=== PATIENT | female | born 1985 | race Caucasian/White ===

== ENCOUNTER → 2024-05-05 14:19 | Outpatient (REF) | payer OTHER, SELFPAY ==
[2024-05-05 15:01] LABS: Urine Albumin Trace (Neg - Trace); Urine Bilirubin Negative (Negative); Urine Character Clear (Clear); Urine Color Yellow; Urine Glucose Negative (Negative); Urine Ketone Trace (Negative); Urine Leukocyte Trace (Negative); Urine Nitrite Negative (Negative); Urine Occult Blood Negative (Negative); Urine Specific Gravity 1.025 (<1.030); Urine Urobilinogen Negative (Neg - 1+)
[2024-05-05 15:08] LABS: % Basophils 0.5 % (0-2); % Eosinophils 0.5 % (0-6); % Immature Granulocytes 0.2 % (0-0.5); % Lymphocytes 47.1 % (20.5-51.1); % Monocytes 8.8 % (1.7-9.3); % Neutrophils 42.9 % (42.2-75.2); Absolute Monocytes 0.6 10^3/uL (0.1-0.6); Absolute Neutrophils 2.7 10^3/uL (1.4-6.5); Hematocrit 40.4 % (37.0-47.0); Hemoglobin 13.9 g/dL (12.0-16.0); Mean Corp Hgb Conc. 34.4 g/dL (33.0-37.0); Mean Corpuscular Volume 87.3 fL (81.0-99.0); Mean Platelet Volume 10.2 fL (7.4-10.4); Nucleated Red Blood Cells % 0 %; Platelet Count 189 10^3/uL (130-400); Red Blood Cell Count 4.63 10^6/uL (4.20-5.40); Red Cell Dist. Width 11.9 % (11.5-14.5); White Blood Cell Count 6.4 10^3/uL (4.8-10.8)
[2024-05-05 15:22] LABS: ALT (SGPT) 16 U/L (0-35); AST (SGOT) 21 U/L (14-36); Albumin 4.9 g/dl (3.5-5.0); Alkaline Phosphatase 49 U/L (38-126); Blood Urea Nitrogen 9 mg/dl (7-17); Calcium 9.7 mg/dl (8.4-10.2); Carbon Dioxide 25 mmol/L (22-30); Chloride 102 mmol/L (98-107); Glucose 88 mg/dl (70-99); Lipase 58 U/L (23-300); Sodium 140 mmol/L (135-145); Total Bilirubin 0.5 mg/dl (0.2-1.3); Total Protein 7.5 g/dl (6.3-8.2); eGFR > 60.00
[2024-05-05 15:38] LABS: Free T4 1.44 ng/dl (0.78-2.19)
[2024-05-05 15:43] LABS: Urine Bacteria Moderate (Negative); Urine Mucus Moderate; Urine Red Blood Cell 0-2 /HPF (0-2); Urine White Cell 0-2 /HPF (0-5)
[2024-05-05 15:52] LABS: TSH 2.48 uIU/ml (0.47-4.68)
== END ==
LOC: REG 14:19
PROVIDERS: ATTENDING PHYSICIAN Nurse Practitioner Family
DX: R00.2 Palpitations (principal); R19.5 Other fecal abnormalities; R10.9 Unspecified abdominal pain; R10.12 Left upper quadrant pain
CPT/HCPCS: 36415; 80053; 81003; 81015; 83690; 84439; 84443; 85025; 87086

== ENCOUNTER → 2024-08-04 12:47 | Outpatient (REF) | payer OTHER, SELFPAY | LOC: WDC 12:47 | PROVIDERS: ATTENDING PHYSICIAN Internal Medicine | DX: N64.4 Mastodynia (principal) | CPT/HCPCS: 77062; 77066 ==

== ENCOUNTER → 2024-08-16 13:06 | Outpatient (REF) | payer OTHER, SELFPAY | LOC: RAD 13:06 | PROVIDERS: ATTENDING PHYSICIAN Internal Medicine | DX: R10.12 Left upper quadrant pain (principal) | CPT/HCPCS: 74177; Q9967 ==

== ENCOUNTER 2024-12-06 08:22 | Emergency (ER) | payer OTHER, SELFPAY ==
[2024-12-06 08:24] VITALS: BP 142/97
[2024-12-06 09:24] VITALS: BMI 22.5
--- NOTE | 2024-12-06 09:38 | ED.GENMED ---
History of Present Illness
General
Chief Complaint: Musculo-Skeletal Complaint
Time Seen by Provider: 12/06/24 09:30
History of Present Illness
History of Present Illness:
39-year-old female presents to the emergency department for evaluation of discomfort and redness to the right hand overlying the fourth MCP joint. She notes she was gardening yesterday but denies any acute injury. Awoke with symptoms today. Worse
with movement. No fevers or chills.
Past History
Past History
ED Past Medical History: None
ED Past Surgical History: Tonsilectomy
Social History
Tobacco: Non-smoker
Personal: Single
Living: with family
Employment: Employed (director of resource development)
Review of Systems
Review of Systems
Allergies reviewed?: Yes
All Other Systems: ROS reviewed and negative except as documented in HPI and ROS
Phy Exam
Physical Exam
Physical Exam:
GEN: Well appearing, NAD, WDWN
HEENT: Oral mucosa moist, no scleral icterus
Cardiac: Regular rate
Lung: No respiratory distress, no tachypnea
MSK: No gross deformity or injuries
Skin: Good color, no pallor or jaundice, mild erythema and swelling of the right fourth MCP joint, no significant pain with passive range of motion, no lymphangitis
Neuro: AO x3, moves all extremities freely
Psych: Calm, cooperative
Course
Orders/Labs/Results
Orders:
Orders
12/06/24 08:27
Hand, Right 3 View [CR Hand - Right Min 3 Views] Urgent
Comment:
Reason For Exam: right hand pain and tenderness
Vital Signs
Initial and Last Documented VS:
Initial Vital Signs
Temp Pulse Resp BP Pulse Ox
98.8 F 103 16 142/97 98
12/06/24 08:24 12/06/24 08:24 12/06/24 08:24 12/06/24 08:24 12/06/24 08:24
Last Documented Vital Signs
Temp Pulse Resp BP Pulse Ox
98.8 F 103 16 142/97 98
12/06/24 08:24 12/06/24 08:24 12/06/24 08:24 12/06/24 08:24 12/06/24 08:24
MDM/Problems Addressed
MDM/Problems Addressed:
Likely a mild developing cellulitis on the basis of recent gardening, likely a small puncture wound that was not appreciated at the time of injury. Will cover with Keflex
*Critical Care Note
Total Time (30-74mins, 75-104mins- exclusive of procedures): Not Applicable
ED Attending Note
-
Portions of this chart may have been created with voice recognition software.� Occasional wrong word or��sound alike� substitutions may have occurred due to the inherent limitations of voice recognition software.
Discharge Plan
Departure
Patient Disposition: Home (Routine Discharge)
Date of Disposition: 12/06/24
Time of Disposition: 09:39
Patient with high blood pressure during this ER visit?: No
Discharge Problem:
Cellulitis of hand, right
Instructions: Cellulitis (skin infection) in adults - ED discharge instructions
Prescriptions:
New
cephalexin 500 mg capsule
500 mg PO Q8H 5 Days Qty: 15 0RF
No Action
ibuprofen [Advil] 200 MG tablet
400 mg PO PRN PRN (Reason: pain)
Referrals:
Michel Hayward DO [Family Provider] -
Interventions
Interventions:
*Risk Screen - Suicide Last Done: 12/06/24 08:24
*General Assessment Last Done: 12/06/24 09:24
*Neglect/Abuse Screening Last Done: 12/06/24 08:24
*ED- Fall Risk Assessment Last Done: 12/06/24 09:24
*ED COVID-19 Vaccine History Last Done: 12/06/24 09:24
*Nursing Disposition Last Done: 12/06/24 09:47
ED-Musculoskeletal Assessment Last Done: 12/06/24 09:24
Discharge Date and Time
Discharge Date/Time: 12/06/24 09:48
Print Language: SYRIAN
== END 2024-12-06 09:48 | disposition home or self-care (01) ==
LOC: EMR 08:22
PROVIDERS: EMERGENCY PHYSICIAN Emergency Medicine; FAMILY PHYSICIAN Internal Medicine
DX: L03.113 Cellulitis of right upper limb (principal)
CPT/HCPCS: 99283; 73130